=== PATIENT | female | born 1935 | race Caucasian/White ===

== ENCOUNTER → 2017-08-14 | Day surgery (SDC) | payer MEDICARE, OTHER ==
[~2017-08-14] MED LIST: ATEN50TA PO; CLOP75TA PO; CRANCAP2 PO; DOXA1TAB35 PO; ECASA81 PO; LIDOCAINE HCL 1% 30 ML VIAL INFIL ONE; MEPERIDINE HCL 25 MG/ML VIAL IV ONE; PROPOFOL 200 MG/20 ML AMP IV ONE; SODIUM CHLORIDE 0.9% 10 ML VIAL ONE; TRIAMCINOLONE ACETONIDE 40 MG/ML VIAL NERV BLOCK ONE; VALS80TA2 PO; VITA2000 PO; VYTO10TA9 PO
--- NOTE | 2017-08-14 10:38 | M6 ---
cc: Deepak Swain MD DATE: 08/14/2017 DATE OF : 1935. PROCEDURE PERFORMED: Radiofrequency ablation sensory branches right femoral and right obturator nerve. History and physical was completed and signed. Consent was signed. Procedure site was marked. Medications were listed and reconciled. Pain score was recorded. Allergies were noted. Time out was taken. Fluoroscopy time was recorded where applicable. Sedation was administered or directed by Dr. Swain. The patient was given oxygen. The patient was monitored by a registered nurse. Total procedure time was greater than 15 minutes. PROCEDURE NOTE: IV was started. Blood pressure cuff, pulse oximeter and EKG were applied. The patient was placed in the supine position on a Dale table, sedated with small amounts of propofol titrated to effect. Also, Demerol was given. Vital signs were monitored and remained stable throughout the procedure. The right hip and groin area was prepped with alcohol and 10% Betadine solution and draped with sterile drapes. Fluoroscopy was used to visualize the right acetabulum. The skin was infiltrated with 1% Xylocaine, using a 27-gauge needle, then an insulated radiofrequency needle with a 10 mm curved tip was advanced to the anterior cephalad portion of the acetabulum in the anatomical locations of the sensory branches of the femoral nerve. Two thermal lesions were made at this area at 60 degrees Centigrade x 2-1/2 minutes. This was followed by injection of 20 mg of Depo-Medrol. Then, the right obturator foramen was visualized and the radiofrequency needle was advanced to the cephalad lateral portion of the obturator foramen in the anatomical location of the sensory branches of the obturator nerve. Two thermal lesions were made here at 60 degrees Centigrade x 2-1/2 minutes and then again 20 mg of Depo-Medrol was injected. Following the procedure, the patient was taken to the recovery room with stable vital signs, neurologically intact. MD JESUS Mix/JEANNIE , 10:20 AM , 10:36 AM
== END | disposition home or self-care (01) ==
LOC: PHSDC 08:44
PROVIDERS: ATTEND Pain Medicine Interventional Pain Medicine
DX: M25.551 Pain in right hip (principal)
CPT/HCPCS: 64640; 99152; 99153; J2175; J3301